=== PATIENT | male | born 1995 | race African-American/Black ===

== ENCOUNTER 2020-01-26 18:06 | Emergency (ER) | payer MEDICAID, OTHER ==
[~2020-01-26] VITALS: Ht 172.7 cm; Wt 74.8 kg
[2020-01-26] MEDS ORDERED: SODIUM CHLORIDE 0.9% 500 ML IV ONE (18:09)
[2020-01-26 19:24] VITALS: BP 118/54
== END 2020-01-26 20:11 | disposition home or self-care (01) ==
LOC: EDSEX 18:06 → EDBD 18:06 → ER 18:06
DX: F25.9 Schizoaffective disorder, unspecified (principal)
CPT/HCPCS: 96365; 99284; J1953; J7060